=== PATIENT | female | born 1995 | race American Indian/Alaskan Native ===

== ENCOUNTER 2017-03-10 19:33 | Inpatient (IN) | payer MEDICAID ==
[2017-03-10] MEDS ORDERED: Sodium Chloride 0.9% 10 ML Syringe FLUSH PRN (21:20)
[2017-03-10] MEDS ORDERED: Lidocaine 1% 50 ML MDV INJECT PRN (21:20)
[2017-03-10] MEDS ORDERED: Nalbuphine 20 MG/1 ML Amp IVPUSH PRN (21:20)
[2017-03-10] MEDS ORDERED: Ondansetron 4 MG/2 ML SDV IVPUSH PRN ×2 (21:20→22:32)
[2017-03-10] MEDS ORDERED: Ampicillin 2 GM in Sodium Chloride 0.9% 100 ML IV ONE (21:20)
[2017-03-10] MEDS ORDERED: Oxytocin/Lactated Ringers 10 UNIT/1,000 ML BAG IV SCH (21:30)
[2017-03-10] MEDS ORDERED: Sodium Chloride 0.9% 200 ML ONE (21:44)
[2017-03-10] MEDS: Lactated Ringers 1,000 ML IV SCH ×3 (21:45→23:31)
[2017-03-10] MEDS ORDERED: fentaNYL 100 MCG/2 ML SDV EPIDUR PRN (22:32)
[2017-03-10] MEDS ORDERED: ePHEDrine 50 MG/ML SDV IVPUSH PRN (22:32)
--- NOTE | 2017-03-10 22:34 | PCM.PREANE ---
Preanesthetic Assessment - Anesthesia/Transfusion/Family Hx Anesthesia History: Prior Anesthesia Without Reaction Family History of Anesthesia Reaction: No Transfusion History: No Prior Transfusion(s) Intubation History: Unknown - Review of Systems General: No Symptoms Pulmonary: No Symptoms Cardiovascular: No Symptoms Gastrointestinal: No symptoms Neurological: No Symptoms Other: Reports: Thyroid Problems (hypothyroid), Anxiety - Physical Assessment NPO Status Date: 03/10/17 NPO Status Time: 17:00 Pulse: 76 O2 Sat by Pulse Oximetry: 98 Respiratory Rate: 18 Blood Pressure: 116/64 Temperature: 36.4 C Vital Signs: Last Vital Signs Temp 36.4 C 03/10/17 21:14 Pulse 76 03/10/17 21:14 Resp 18 03/10/17 21:14 BP 116/64 03/10/17 21:14 Pulse Ox 98 03/10/17 21:14 Height: 1.65 m Weight: 148.189 kg ASA Class: 2 Mental Status: Alert & Oriented x3 Airway Class: Mallampati = 1 Dentition: Reports: Normal Dentition, Caries Thyro-Mental Finger Breadths: 3 Mouth Opening Finger Breadths: 3 ROM/Head Extension: Full Lungs: Clear to auscultation, Normal respiratory effort Cardiovascular: Regular Rate, Regular Rhythm - Lab Values: Laboratory Last Values WBC 11.15 K/mm3 (3.98-10.04) H 03/10/17 21:30 RBC 4.06 M/mm3 (3.98-5.22) 03/10/17 21:30 Hgb 12.5 gm/L (11.2-15.7) 03/10/17 21:30 Hct 37.3 % (34.1-44.9) 03/10/17 21:30 MCV 91.9 fl (79.4-94.8) 03/10/17 21:30 MCH 30.8 pg (25.6-32.2) 03/10/17 21:30 MCHC 33.5 g/dl (32.2-35.5) 03/10/17 21:30 RDW Std Deviation 41.6 fL (36.4-46.3) 03/10/17 21:30 Plt Count 291 K/mm3 (182-369) 03/10/17 21:30 MPV 10.6 fl (9.4-12.3) 03/10/17 21:30 Above labs reviewed and noted. 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: Endocrine/Metabolic History: Reports: Hyperthyroidism, Obesity/BMI 30+ - Past Surgical History HEENT Surgical History: Reports: Oral Surgery, Tonsillectomy Endocrine Surgical History: Reports: None - SUBSTANCE USE Smoking Status *Q: Never Smoker Second Hand Smoke Exposure: No Recreational Drug Use History: No - HOME MEDS Home Medications: Home Meds ALPRAZolam [Xanax] 0.5 mg PO DAILY PRN 03/10/17 [History] Levothyroxine 25 mcg PO DAILY 03/10/17 [History] Vit W-Ca,Fe,FA(<1 mg) [ Vitamins] 1 tab PO DAILY 03/10/17 [ History] - CURRENT (IN HOUSE) MEDS Current Meds: Current Medications Ampicillin Sodium 1 gm/ Sodium (Chloride) 100 mls @ 200 mls/hr IV Q4H CHELA Lactated Ringer's (Ringers, Lactated) 1,000 mls @ 100 mls/hr IV ASDIRECTED [facility] Last Admin: 03/10/17 21:45 Dose: 999 mls/hr Oxytocin/Lactated Ringer's (Pitocin In Lr 10 Units/1,000 Ml) 10 unit in 1,000 mls @ 500 mls/hr IV TITRATE CHELA PRN Reason: Protocol Lidocaine HCl (Xylocaine 1%) 15 ml INJECT ONETIME PRN PRN Reason: Perineal Comfort Measure Nalbuphine HCl (Nubain) 10 mg IVPUSH Q2H PRN PRN Reason: Pain (moderate 4-6) Ondansetron HCl (Zofran) 4 mg IVPUSH Q4H PRN PRN Reason: Nausea/Vomiting Sodium Chloride (Saline Flush) 10 ml FLUSH ASDIRECTED PRN PRN Reason: Keep Vein Open Discontinued Medications Ampicillin Sodium 2 gm/ Sodium (Chloride) 100 mls @ 200 mls/hr IV ONETIME ONE Stop: 03/10/17 21:49 Last Admin: 03/10/17 21:45 Dose: 200 mls/hr Sodium Chloride (Normal Saline) Confirm Administered Dose 200 mls @ as directed .ROUTE .STK-MED ONE Stop: 03/10/17 21:45 Last Admin: 03/10/17 21:52 Dose: Not Given
--- NOTE | 2017-03-10 22:37 | PCM.LDHP ---
L&D History of Present Illness - General Date of Service: 03/10/17 Admit Problem/Dx: Patient Status Order with Admit Dx/Problem 03/10/17 21:20 Patient Status [ADT] Routine Admission Diagnosis/Problem Admission Diagnosis/Problem 03/10/17 22:23 39-4/7 week intrauterine , active labor progression of cervical dilation Source of Information: Patient History Limitations: Reports: No Limitations - History of Present Illness Introduction:: Tess is a 22-year-old 2 para 1001 thickening in female who is admitted this evening for active labor. She has an RADHA of 03/13/2017. Her RADHA is based upon ultrasound done on 09/15/2016 at 14-2/7 weeks.. Followup ultrasounds on 10/16/2016 end 11/24/2016 which supported the earliest ultrasound. She began contractions earlier today and has now progressed to approximately 6 cm. She is a bulging bag of andrade. She's received 1 dose of ampicillin prophylaxis for positive group B strep status. [facility] is [facility] in [facility]. She is apparently in 4 some drug addiction. 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 Ultrasound was done on 09/15/2016. She did followup visits on a reasonably regular basis by her history. Weight gain has been approximately 40 -50 pounds. Obstetric/ labs include: Blood is O+ with negative and risking. First renal hemoglobin was 12 0.8 and platelets were 317,000. She is rubella nonimmune. Hepatitis B and hepatitis C were nonreactive. HIV nonreactive. Chlamydia was positive and was treated. By patient history test to cure was done and was negative. GC was negative. Urine cultures normal. TSH is 0.41 microunits per minute layer. TSH was done on 05/17/2015. Free T4 on 09/27/2006 and was 0.7. Allergies none Medications: 1. Levothyroxine 25 mg per day past medical history 1. Vaginal delivery x1 2. History of Chlamydia-treated 3. Hidradenitis suppurativa 4. Hypothyroidism 5. Anxiety. Past surgical history: Surgery for hidradenitis Family history: Mother is alive but has diabetes mellitus. Father is alive and reasonably well. All grandparents are . Maternal grandfather secondary to cirrhosis of the liver. Maternal grandmother secondary to diabetic complications. Patient is not know her father or his family history. She is not feel or any bleeding, blood clotting, anesthesia or - related problems in the family. Social history: Patient is . Presently she is incarcerated as stated above. She denies any significant loss of alcohol, drugs or tobacco but did use marijuana early in the . She is incarcerated for a drug conviction by her history. 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 Review of systems: Patient is in moderate distress secondary contractions Skin-history of hidradenitis-stable at this time Cardiovascular-no chest pain or exercise intolerance of the nose associated with lack of condition Respiratory-no shortness of breath or infectious symptoms Breasts-changes associated with only GI. Negative . Changes associated with Musculoskeletal-some swelling noted. Neurologic-normal Physical exam: In general patient is a well-developed, well-nourished massively obese white female in no acute distress other than when she is nadira. She is alert and oriented x3 and appears to be reasonable historian. Skin is warm and dry with with out any active lesions. Has scarring from her hidradenitis. HEENT, neck and back within normal limits no thyromegaly noted at this time Lungs are clear with good breath sounds in all garner. Cardiovascular exam shows regular and rhythm without murmurs. Breast exam is deferred. Abdomen circumferences fundal height consistent with term . Suspected estimated weight to be 8-9 pounds. Genital exam shows cervix to be 6 cm/90% effaced/posterior bag water/-3/ cephalic presentation/very soft/midposition Extremities and neurological exam show mild edema. 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: Endocrine/Metabolic History: Reports: Hyperthyroidism, Obesity/BMI 30+ - Past Surgical History HEENT Surgical History: Reports: Oral Surgery, Tonsillectomy Endocrine Surgical History: Reports: None Social & Family History - Family History Family Medical History: Noncontributory - Tobacco Use Smoking Status *Q: Never Smoker Second Hand Smoke Exposure: No - Caffeine Use Caffeine Use: Reports: None - Recreational Drug Use Recreational Drug Use: No H&P Review of Systems - Review of Systems: Review Of Systems: See Below L&D Exam - Exam Exam: See Below - Vital Signs Vital Signs: Last Vital Signs Temp 36.4 C 03/10/17 21:14 Pulse 76 03/10/17 21:14 Resp 18 03/10/17 21:14 BP 116/64 03/10/17 21:14 Pulse Ox 98 03/10/17 21:14 Weight: 148.189 kg - Patient Data Lab Results last 24 hrs: Laboratory Results - last 24 hr 03/10/17 Range/Units 21:30 WBC 11.15 H (3.98-10.04) K/mm3 RBC 4.06 (3.98-5.22) M/mm3 Hgb 12.5 (11.2-15.7) gm/L Hct 37.3 (34.1-44.9) % MCV 91.9 (79.4-94.8) fl MCH 30.8 (25.6-32.2) pg MCHC 33.5 (32.2-35.5) g/dl RDW Std Deviation 41.6 (36.4-46.3) fL Plt Count 291 (182-369) K/mm3 MPV 10.6 (9.4-12.3) fl Result Diagrams: 03/10/17 21:30 Problem List Initiated/Reviewed/Updated: Yes Orders Last 24hrs: Active Orders 24 hr Category Date Time Status Patient Status [ADT] Routine ADT 03/10/17 21:20 Active Activity as Tolerated [RC] PFP Care 03/10/17 21:20 Active Communication Order [RC] ASDIRECTED Care 03/10/17 21:20 Active Heart Tones [RC] ASDIRECTED Care 03/10/17 21:22 Active Notify Provider [RC] PFP Care 03/10/17 21:20 Active Notify Provider [RC] PRN Care 03/10/17 21:20 Active Peripheral IV Care [RC] . DIRECTED Care 03/10/17 21:22 Active Vital Signs [RC] PER UNIT ROUTINE Care 03/10/17 21:20 Active Clear Liquid Diet [DIET] Diet 03/10/17 Dinner Active Ampicillin 1 gm Med 03/11/17 01:30 Active Sodium Chloride 0.9% [Normal Saline] 100 ml IV Q4H Lactated Ringers [Ringers, Lactated] 1,000 ml Med 03/10/17 21:30 Active IV ASDIRECTED Lidocaine 1% [Xylocaine 1%] Med 03/10/17 21:20 Active 15 ml INJECT ONETIME PRN Nalbuphine [Nubain] Med 03/10/17 21:20 Active 10 mg IVPUSH Q2H PRN Ondansetron [Zofran] Med 03/10/17 21:20 Active 4 mg IVPUSH Q4H PRN Oxytocin/Lactated Ringers [Pitocin in LR 10 Units/1,000 Med 03/10/17 21:30 Active ML] 10 unit in 1,000 ml IV TITRATE Sodium Chloride 0.9% [Saline Flush] Med 03/10/17 21:20 Active 10 ml FLUSH ASDIRECTED PRN Electronic Heart Tones Ext w TOCO [WOMSER] Oth 03/10/17 21:20 Ordered Routine Electronic Heart Tones Internal [WOMSER] Per Unit Oth 03/10/17 21:20 Ordered Routine Peripheral IV Insertion Adult [OM.PC] Routine Oth 03/10/17 21:20 Ordered Resuscitation Status Routine Resus Stat 03/10/17 21:20 Ordered Medication Orders Ampicillin Sodium 1 gm/ Sodium (Chloride) 100 mls @ 200 mls/hr IV Q4H CHELA Lactated Ringer's (Ringers, Lactated) 1,000 mls @ 100 mls/hr IV ASDIRECTED CHELA Last Admin: 03/10/17 21:45 Dose: 999 mls/hr Oxytocin/Lactated Ringer's (Pitocin In Lr 10 Units/1,000 Ml) 10 unit in 1,000 mls @ 500 mls/hr IV TITRATE CHELA PRN Reason: Protocol Lidocaine HCl (Xylocaine 1%) 15 ml INJECT ONETIME PRN PRN Reason: Perineal Comfort Measure Nalbuphine HCl (Nubain) 10 mg IVPUSH Q2H PRN PRN Reason: Pain (moderate 4-6) Ondansetron HCl (Zofran) 4 mg IVPUSH Q4H PRN PRN Reason: Nausea/Vomiting Sodium Chloride (Saline Flush) 10 ml FLUSH ASDIRECTED PRN PRN Reason: Keep Vein Open Assessment/Plan Comment:: : 1. 39-4/7 week intrauterine , active labor, progressed to cervical dilation 2. Group B strep status positive-patient's receive first dose of ampicillin. 3. Patient desire an epidural in labor and delivery 4. Risk factors for include the following: Massive obesity, incarceration [facility], history of drug use in early using marijuana only by her history. 5. Rubella nonimmune 6. Nursing-undecided Plan: 1. Anticipate normal spontaneous vaginal delivery 2. Epidural when necessary 3. MMR after delivery and prior to discharge 4. CBC with platelet count. 5. 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
[2017-03-10] MEDS ORDERED: Bupivacaine/fentaNYL/NS 100 ML Bag EPIDUR SCH (22:45)
[2017-03-11] MEDS ORDERED: Ampicillin 1 GM in Sodium Chloride 0.9% 100 ML IV SCH (01:30)
[2017-03-11] MEDS ORDERED: Measles, Mumps & Rubella Vaccine 0.5 ML SDV SUBCUT ONE (01:58)
--- NOTE | 2017-03-11 02:04 | PCM.SN ---
- Free Text/Narrative Note: Tess is a 22-year-old 2 now para 2002 female was admitted on the evening of 03/10/2017 with reports of active contractions. She was initially found to be approximately 2 cm but fairly quickly went to 4 cm and was admitted in active labor. She is group B strep positive and received 2 doses of ampicillin per protocol. She was found to progress relatively quickly to complete cervical dilation by approximately 0130 hours on 03/11/2017. With one push she then delivered a 3680 g (8 lbs. 2 oz.) male with Apgars of 7 and 9 and length of 20.0 inches in a right occiput anterior position. The cord was clamped and baby was layed on the patient's abdomen. Cord blood was obtained. The placenta delivered in a Schultze presentation, spontaneously, intact and complete. There was approximately 300 cc blood loss. The placenta delivered at 0143 hours. Patient plans to bottlefeed. Condition-good
[2017-03-11] MEDS ORDERED: Witch Hazel Medicated Pads 100/Jar TOP PRN (02:25)
[2017-03-11] MEDS ORDERED: Benzocaine/Menthol 20%-0.5% Spray 56 GM Canister TOP PRN (02:25)
[2017-03-11] MEDS ORDERED: Docusate Sodium 100 MG Cap PO PRN (02:25)
[2017-03-11] MEDS ORDERED: Acetaminophen 325 MG Tab PO PRN (02:25)
[2017-03-11] MEDS: Ibuprofen 800 MG Tab PO PRN ×2 (03:25→14:41)
--- NOTE | 2017-03-11 06:13 | PCM48HPAN ---
Post Anesthesia Note - EVALUATION WITHIN 48HRS OF ANESTHETIC Vital Signs in Normal Range: Yes Patient Participated in Evaluation: Yes Respiratory Function Stable: Yes Airway Patent: Yes Cardiovascular Function Stable: Yes Hydration Status Stable: Yes Pain Control Satisfactory: Yes Nausea and Vomiting Control Satisfactory: Yes Mental Status Recovered: Yes
[2017-03-11] MEDS: Levothyroxine 25 MCG Tab PO SCH (09:05)
[2017-03-11] MEDS: Prenatal Multivitamin with Calcium/Folic Acid/Iron Tab PO SCH (09:05)
[2017-03-12 05:55] VITALS: BP 114/45
--- NOTE | 2017-03-12 06:59 | PCM.DCSUM1 ---
Discharge Summary - Hospital Course Free Text/Narrative:: Tess is a 22-year-old 2 now para 2002 female was admitted at 39-4/7 weeks gestational age on the evening of 03/10/2017 with reports of active contractions. She was initially found to be approximately 2 cm but fairly quickly went to 4 cm and was admitted in active labor. She is group B strep positive and received 2 doses of ampicillin per protocol. She was found to progress relatively quickly to complete cervical dilation by approximately 0130 hours on 03/11/2017. With one push she then delivered a 3680 g (8 lbs. 2 oz.) male infant with Apgars of 7 and 9 and length of 20.0 inches in a right occiput anterior position. The cord was clamped and baby was layed on the patient's abdomen. Cord blood was obtained. The placenta delivered in a Schultze presentation, spontaneously, intact and complete. There was approximately 300 cc blood loss. The placenta delivered at 0143 hours. Patient plans to bottlefeed. Patient is incarcerated at the [facility] in [facility]. She'll be returning there upon discharge. The baby will be going to live with the father. patient is done well. She is bottlefeeding. Vital signs and stable. - Discharge Data Discharge Date: 03/12/17 Discharge Disposition: DC/Tfer to Other 70 Condition: Good - Patient Instructions Diet: Regular Diet as Tolerated Activity: As Tolerated (No intercourse or tampons until vaginal bleeding resolves) Driving: Do Not Drive Showering/Bathing: May Shower (May take a bath) Notify Provider of: Fever, Increased Pain, Swelling and Redness, Nausea and/or Vomiting - Discharge Plan Home Medications: Home Meds ALPRAZolam [Xanax] 0.5 mg PO DAILY PRN 03/10/17 [History] Levothyroxine 25 mcg PO DAILY 03/10/17 [History] Vit W-Ca,Fe,FA(<1 mg) [ Vitamins] 1 tab PO DAILY 03/10/17 [ History] Ibuprofen [IJD: Ibuprofen] 800 mg PO Q6H PRN #30 tablet 03/12/17 [Rx] Referrals: Yuki Tesfaye MD [Physician] - (Return to clinic-4 weeks-Dr. Tesfaye) - Discharge Summary/Plan Comment DC Time >30 min.: No Discharge Summary/Plan Comment: Discharge instructions: 1. Discharge home 2. Regular, high fiber diet 3. Precautions given concern increased pain, bleeding, temperature, signs/ symptoms and DVT/PE. 4. Medications per medication as printed, discussed with and given to the patient. 5. Return to clinic-Dr. Tesfaye-4 weeks. Condition: Good Diagnosis: 39 week intrauterine -delivered - Patient Data Vitals - Most Recent: Last Vital Signs Temp 36.8 C 03/12/17 05:24 Pulse 70 03/12/17 05:24 Resp 18 03/12/17 05:24 BP 114/45 L 03/12/17 05:24 Pulse Ox 99 03/12/17 05:24 Weight - Most Recent: 148.189 kg I&O - Last 24 hours: Intake & Output 03/11/17 03/11/17 03/12/17 14:59 22:59 06:59 Intake Total 360 Balance 360 Lab Results - Last 24 hrs: Laboratory Results - last 24 hr 03/12/17 Range/Units 05:47 WBC 8.49 (3.98-10.04) K/mm3 RBC 3.65 L (3.98-5.22) M/mm3 Hgb 11.4 (11.2-15.7) gm/L Hct 34.1 (34.1-44.9) % MCV 93.4 (79.4-94.8) fl MCH 31.2 (25.6-32.2) pg MCHC 33.4 (32.2-35.5) g/dl RDW Std Deviation 42.3 (36.4-46.3) fL Plt Count 254 (182-369) K/mm3 MPV 10.5 (9.4-12.3) fl Med Orders - Current: Current Medications Acetaminophen (Tylenol) 650 mg PO Q4H PRN PRN Reason: mild pain or fever Benzocaine/Menthol (Dermoplast Pain Relief [place]) 0 gm TOP ASDIRECTED PRN PRN Reason: Perineal Comfort Measure Last Admin: 03/11/17 03:25 Dose: 1 canister Docusate Sodium (Colace) 100 mg PO BID PRN PRN Reason: Constipation Last Admin: 03/11/17 03:25 Dose: 100 mg Ibuprofen (Motrin) 800 mg PO Q6H PRN PRN Reason: Mild pain or fever Last Admin: 03/11/17 14:41 Dose: 800 mg Levothyroxine Sodium (Levothyroxine) 25 mcg PO ACBRK [facility] Last Admin: 03/11/17 09:05 Dose: 25 mcg Prenat Multivit/Quay/Iron/Folic Ac ( Plus Iron) 1 each PO DAILY [facility] Last Admin: 03/11/17 09:05 Dose: 1 each [place] Kinza (Tucks) 1 pad TOP ASDIRECTED PRN PRN Reason: Hemorrhoid pain Last Admin: 03/11/17 03:24 Dose: 1 container Discontinued Medications Ephedrine Sulfate (Ephedrine Sulfate) 5 mg IVPUSH ASDIRECTED PRN PRN Reason: Hypotension Fentanyl (Sublimaze) 100 mcg EPIDUR Q3H PRN PRN Reason: Pain Last Admin: 03/10/17 22:51 Dose: 100 mcg Fentanyl/Bupivacaine HCl (Fentanyl/Bupivacaine/Ns 2 Mcg-0.125% 100 Ml) 100 ml EPIDUR ASDIRECTED [facility] Last Admin: 03/10/17 22:51 Dose: 100 ml Ampicillin Sodium 2 gm/ Sodium (Chloride) 100 mls @ 200 mls/hr IV ONETIME ONE Stop: 03/10/17 21:49 Last Admin: 03/10/17 21:45 Dose: 200 mls/hr Ampicillin Sodium 1 gm/ Sodium (Chloride) 100 mls @ 200 mls/hr IV Q4H [facility] Last Admin: 03/11/17 01:11 Dose: 200 mls/hr Lactated Ringer's (Ringers, Lactated) 1,000 mls @ 100 mls/hr IV ASDIRECTED [facility] Last Admin: 03/10/17 23:31 Dose: 125 mls/hr Oxytocin/Lactated Ringer's (Pitocin In Lr 10 Units/1,000 Ml) 10 unit in 1,000 mls @ 500 mls/hr IV TITRATE [facility] PRN Reason: Protocol Last Admin: 03/11/17 01:40 Dose: 500 mls/hr Sodium Chloride (Normal Saline) Confirm Administered Dose 200 mls @ as directed .ROUTE .STK-MED ONE Stop: 03/10/17 21:45 Last Admin: 03/10/17 21:52 Dose: Not Given Lidocaine HCl (Xylocaine 1%) 15 ml INJECT ONETIME PRN PRN Reason: Perineal Comfort Measure Measles/Mumps/Rubella Vaccine Live (M-M-R Ii Vaccine) 0.5 ml SUBCUT .ONCE ONE Stop: 03/11/17 01:59 Nalbuphine HCl (Nubain) 10 mg IVPUSH Q2H PRN PRN Reason: Pain (moderate 4-6) Ondansetron HCl (Zofran) 4 mg IVPUSH Q4H PRN PRN Reason: Nausea/Vomiting Ondansetron HCl (Zofran) 4 mg IVPUSH ONETIME PRN PRN Reason: Nausea/Vomiting Sodium Chloride (Saline Flush) 10 ml FLUSH ASDIRECTED PRN PRN Reason: Keep Vein Open *Q Meaningful Use (DIS) - VTE *Q VTE Criteria *Q: - Stroke *Q Stroke Criteria *Q: - AMI *Q AMI Criteria *Q:
[2017-03-12] MEDS: Levothyroxine 25 MCG Tab PO SCH (08:08)
[2017-03-12] MEDS: Prenatal Multivitamin with Calcium/Folic Acid/Iron Tab PO SCH (09:00)
== END 2017-03-12 09:46 | disposition other institution (70) | DRG 775 ==
LOC: JD.OB 19:33 → JD.OBCHECK 19:33 → JD.OB 21:20 → OBSVTOIN 03-11 01:40 → JD.OB 03-11 01:40
PROVIDERS: ADMIT Obstetrics & Gynecology; ATTEND Obstetrics & Gynecology
PROC: 10E0XZZ Delivery of Products of Conception, External Approach (ICD-10-PCS; principal; 2017-03-11)
PROC: 3E0R3CZ (ICD-10-PCS; 2017-03-11)
DX: O99.824 Streptococcus B carrier state complicating childbirth (principal); O99.344 Other mental disorders complicating childbirth; O99.284 Endocrine, nutritional and metabolic diseases complicating childbirth; E03.9 Hypothyroidism, unspecified; L73.2 Hidradenitis suppurativa; F41.9 Anxiety disorder, unspecified; Z86.19 Personal history of other infectious and parasitic diseases; Z3A.39 39 weeks gestation of pregnancy; Z37.0 Single live birth
CPT/HCPCS: 01967; 36415; 85027; A9270-GY; J0290; J2590; J3010; J7030; J7120

== ENCOUNTER 2020-01-28 06:49 | Inpatient (IN) | payer MEDICAID, OTHER ==
[~2020-01-28 06:49] MED LIST: Bupivacaine 0.25% 10 ML SDV ONE
[2020-01-28] MEDS ORDERED: Sodium Chloride 0.9% 10 ML Syringe FLUSH PRN (07:17)
[2020-01-28] MEDS ORDERED: Ondansetron 4 MG/2 ML SDV IVPUSH PRN (07:17)
[2020-01-28] MEDS ORDERED: Nalbuphine 10 MG/ML Syringe IVPUSH PRN (07:17)
--- NOTE | 2020-01-28 07:20 | PCM.LDHP ---
L&D History of Present Illness - General Date of Service: 01/28/20 Admit Problem/Dx: Patient Status Order with Admit Dx/Problem 01/28/20 07:17 Patient Status [ADT] Routine Admission Diagnosis/Problem Admission Diagnosis/Problem High risk Source of Information: Patient History Limitations: Reports: No Limitations - History of Present Illness Introduction:: Patient is a 24-year-old 013 at 39-3/7 weeks gestation who presents for induction of labor. Patient's has been complicated by early maternal drug use. She has been incarcerated since about 16 weeks. Also has complication of maternal obesity with a BMI of 50 currently. Growth scans been appropriate. Doing well today. 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 , : 5 Para: 3 LMP (Approximate): Psychiatric History: Reports: Addiction, Anxiety, Depression Endocrine/Metabolic History: Reports: Obesity/BMI 30+ - Past Surgical History HEENT Surgical History: Reports: Tonsillectomy Female Surgical History: Reports: Other (See Below) (Ectopic procedure) Social & Family History - Family History Family Medical History: Noncontributory - Tobacco Use Smoking Status *Q: Never Smoker - Caffeine Use Caffeine Use: Reports: None - Alcohol Use Alcohol Use History: No - Recreational Drug Use Recreational Drug Use: Yes Drug Use in Last 12 Months: Yes Recreational Drug Type: Reports: Cocaine, Heroin H&P Review of Systems - Review of Systems: Review Of Systems: See Below General: Reports: No Symptoms Pulmonary: Reports: No Symptoms Cardiovascular: Reports: No Symptoms Gastrointestinal: Reports: No Symptoms Genitourinary: Reports: No Symptoms Musculoskeletal: Reports: No Symptoms Psychiatric: Reports: No Symptoms Neurological: Reports: No Symptoms L&D Exam - Exam Exam: See Below - OB Specific Contraction Intensity: Irritability Movement: Active Heart Tones: Present Heart Tones per Min: 140 Heart Rate (FHR) Variability: Moderate (6-25 bmp) Presentation: Vertex - Blanco Score Blanco Score Cervix Position: Midposition Blanco Score Consistency: Soft Blanco Score Effacement: 51-70% Blanco Score Dilation: 1-2 cm Blanco Score 's Station: -2 Blanco Score Total: 7 - Exam General: Alert, Oriented, Cooperative Lungs: Clear to Auscultation, Normal Respiratory Effort Cardiovascular: Regular Rate, Regular Rhythm GI/Abdominal Exam: Soft, Non-Tender Genitourinary: Normal external exam Extremities: Normal Inspection Skin: Warm, Dry, Intact - Patient Data Result Diagrams: 01/28/20 07:45 - Problem List (1) 39 weeks gestation of SNOMED Code(s): 14842746 ICD Code: Z3A.39 - 39 WEEKS GESTATION OF Status: Acute Current Visit: Yes (2) Imprisonment and other incarceration SNOMED Code(s): 57177236 ICD Code: Z65.1 - IMPRISONMENT AND OTHER INCARCERATION Status: Acute Current Visit: Yes (3) History of drug abuse SNOMED Code(s): 463345660 ICD Code: F19.11 - OTHER PSYCHOACTIVE SUBSTANCE ABUSE, IN REMISSION Status : Acute Current Visit: Yes Problem List Initiated/Reviewed/Updated: Yes Orders Last 24hrs: Active Orders 24 hr Category Date Time Status Patient Status [ADT] Routine ADT 01/28/20 07:17 Ordered Activity as Tolerated [RC] PFP Care 01/28/20 07:17 Ordered Communication Order [RC] ASDIRECTED Care 01/28/20 07:17 Ordered Communication Order [RC] ASDIRECTED Care 01/28/20 07:17 Ordered Communication Order [RC] ASDIRECTED Care 01/28/20 07:17 Ordered Heart Tones [RC] ASDIRECTED Care 01/28/20 07:18 Ordered Monitoring [RC] INTERMITTENT Care 01/28/20 07:17 Ordered Non Stress Test [RC] PER UNIT ROUTINE Care 01/28/20 07:17 Ordered Notify Provider [RC] ASDIRECTED Care 01/28/20 07:17 Ordered Notify Provider [RC] PRN Care 01/28/20 07:17 Ordered Peripheral IV Care [RC] . DIRECTED Care 01/28/20 07:18 Ordered Up ad Amie [RC] ASDIRECTED Care 01/28/20 07:18 Ordered Vaginal Exam [RC] ASDIRECTED Care 01/28/20 07:17 Ordered Vital Signs [RC] ASDIRECTED Care 01/28/20 07:17 Ordered Regular Diet [DIET] Diet 01/28/20 Breakfast Ordered CBC W/O DIFF,HEMOGRAM [HEME] Routine Lab 01/28/20 07:17 Ordered RAPID PLASMA REAGIN,RPR [CHEM] Routine Lab 01/28/20 07:17 Ordered TYPE AND SCREEN [BBK] Routine Lab 01/28/20 07:17 Ordered Lactated Ringers [Ringers, Lactated] 1,000 ml Med 01/28/20 07:30 Ordered IV ASDIRECTED Nalbuphine [Nubain] Med 01/28/20 07:17 Ordered 10 mg IVPUSH Q2H PRN Ondansetron [Zofran] Med 01/28/20 07:17 Ordered 4 mg IVPUSH Q4H PRN Oxytocin/Lactated Ringers [Pitocin in LR 10 Units/1,000 Med 01/28/20 07:30 Ordered ML] 10 unit in 1,000 ml IV .CONTINUOUS Oxytocin/Lactated Ringers [Pitocin in LR 10 Units/1,000 Med 01/28/20 07:30 Ordered ML] 10 unit in 1,000 ml IV TITRATE Sodium Chloride 0.9% [Saline Flush] Med 01/28/20 07:17 Ordered 10 ml FLUSH ASDIRECTED PRN Electronic Heart Tones Ext w TOCO [WOMSER] Oth 01/28/20 07:17 Ordered Routine Electronic Heart Tones Internal [WOMSER] Per Unit Oth 01/28/20 07:17 Ordered Routine Peripheral IV Insertion Adult [OM.PC] Routine Oth 01/28/20 07:17 Ordered Resuscitation Status Routine Resus Stat 01/28/20 07:17 Ordered Assessment/Plan Comment:: * Labs done * GBS negative * AROM and pitocin * Pain management per patient preference * Anticipate * UDS and cord segment collection
[2020-01-28] MEDS ORDERED: Oxytocin/Lactated Ringers 10 UNIT/1,000 ML BAG IV SCH ×2 (07:30)
[2020-01-28] MEDS ORDERED: ePHEDrine 50 MG/ML SDV IVPUSH PRN (07:31)
[2020-01-28] MEDS ORDERED: fentaNYL 100 MCG/2 ML SDV EPIDUR PRN (07:31)
[2020-01-28] MEDS ORDERED: diphenhydrAMINE 50 MG/ML SDV IVPUSH PRN (07:31)
[2020-01-28] MEDS ORDERED: Bupivacaine/fentaNYL/NS 100 ML Bag EPIDUR PRN (07:31)
[2020-01-28] MEDS: Lactated Ringers 1,000 ML IV SCH ×2 (08:00→09:58)
--- NOTE | 2020-01-28 10:33 | PCM.PREANE ---
Preanesthetic Assessment - Procedure Proposed Procedure: epidural - Anesthesia/Transfusion/Family Hx Anesthesia History: Prior Anesthesia Without Reaction Family History of Anesthesia Reaction: No Transfusion History: No Prior Transfusion(s) Intubation History: Unknown - Review of Systems General: Fatigue Pulmonary: No Symptoms Cardiovascular: No Symptoms Gastrointestinal: Abdominal Pain (labor) Neurological: No Symptoms Other: Reports: None - Physical Assessment Vital Signs: Last Vital Signs Temp 36.5 C 01/28/20 07:17 Pulse Resp 14 01/28/20 07:17 BP 107/64 01/28/20 07:17 Pulse Ox 98 01/28/20 07:17 Height: 1.6 m Weight: 138.527 kg ASA Class: 2 Mental Status: Alert & Oriented x3 Airway Class: Mallampati = 2 Dentition: Reports: Missing Tooth/Teeth, Caries Thyro-Mental Finger Breadths: 3 Mouth Opening Finger Breadths: 3 ROM/Head Extension: Full Lungs: Clear to Auscultation, Normal Respiratory Effort Cardiovascular: Regular Rate, Regular Rhythm - Lab Values: Laboratory Last Values WBC 9.75 K/mm3 (3.98-10.04) 01/28/20 07:45 RBC 3.79 M/mm3 (3.98-5.22) L 01/28/20 07:45 Hgb 11.5 gm/dl (11.2-15.7) 01/28/20 07:45 Hct 35.2 % (34.1-44.9) 01/28/20 07:45 MCV 92.9 fl (79.4-94.8) 01/28/20 07:45 MCH 30.3 pg (25.6-32.2) 01/28/20 07:45 MCHC 32.7 g/dl (32.2-35.5) 01/28/20 07:45 RDW Std Deviation 40.8 fL (36.4-46.3) 01/28/20 07:45 Plt Count 291 K/mm3 (182-369) 01/28/20 07:45 MPV 10.7 fl (9.4-12.3) 01/28/20 07:45 Urine Opiates Screen Negative (IDTNVB=951) 01/28/20 09:40 Ur Buprenorphine Scrn Negative (CUTOFF=10) 01/28/20 09:40 Ur Oxycodone Screen Negative (GQI2UB=598) 01/28/20 09:40 Urine Methadone Screen Negative (OYWPXI=293) 01/28/20 09:40 Ur Propoxyphene Screen Negative (HGUSQT=761) 01/28/20 09:40 Ur Barbiturates Screen Negative (JGTFZZ=754) 01/28/20 09:40 Ur Tricyclics Screen Negative (IXVANS=631) 01/28/20 09:40 Ur Phencyclidine Scrn Negative (CUTOFF=25) 01/28/20 09:40 Ur Amphetamine Screen Negative (LBATBW=189) 01/28/20 09:40 U Methamphetamines Scrn Negative (SMZMTI=430) 01/28/20 09:40 U Benzodiazepines Scrn Negative (FEPHKH=802) 01/28/20 09:40 U Cocaine Metab Screen Negative (RBMSFZ=813) 01/28/20 09:40 U Marijuana (THC) Screen Negative (CUTOFF=50) 01/28/20 09:40 - Allergies Allergies/Adverse Reactions: Allergies Allergy/AdvReac Type Severity Reaction Status Date / Time No Known Allergies Allergy Verified 01/28/20 08:05 - Anesthesia Plan Pre-Op Medication Ordered: None - Acknowledgements Anesthesia Type Planned: Epidural Pt an Appropriate Candidate for the Planned Anesthesia: Yes Alternatives and Risks of Anesthesia Discussed w Pt/Guardian: Yes Pt/Guardian Understands and Agrees with Anesthesia Plan: Yes PreAnesthesia Questionnaire HEENT History: Reports: None Gastrointestinal History: Reports: GERD 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 , Endocrine/Metabolic History: Reports: Hyperthyroidism, Obesity/BMI 30+ - Past Surgical History Endocrine Surgical History: Reports: Adrenal Gland - SUBSTANCE USE Smoking Status *Q: Never Smoker Second Hand Smoke Exposure: No Recreational Drug Use History: Yes Recreational Drug Type: Reports: Marijuana/Hashish - CURRENT (IN HOUSE) MEDS Current Meds: Current Medications Diphenhydramine HCl (Benadryl) 25 mg IVPUSH Q6H PRN PRN Reason: Itching Ephedrine Sulfate (Ephedrine Sulfate) 5 mg IVPUSH ASDIRECTED PRN PRN Reason: HYPOTENTSION Fentanyl (Sublimaze) 100 mcg EPIDUR Q3H PRN PRN Reason: Pain Last Admin: 01/28/20 10:02 Dose: 100 mcg Fentanyl/Bupivacaine HCl (Fentanyl/Bupivacaine/Ns 2 Mcg-0.125% 100 Ml) 100 ml EPIDUR CONTINUOUS PRN PRN Reason: Pain Last Admin: 01/28/20 10:02 Dose: 100 ml Lactated Ringer's (Ringers, Lactated) 1,000 mls @ 40 mls/hr IV ASDIRECTED CHELA Last Admin: 01/28/20 09:58 Dose: 40 mls/hr Oxytocin/Lactated Ringer's (Pitocin In Lr 10 Units/1,000 Ml) 10 unit in 1,000 mls @ 12 mls/hr IV TITRATE CHELA; Protocol Last Titration: 01/28/20 08:45 Dose: 4 munits/min, 24 mls/hr Oxytocin/Lactated Ringer's (Pitocin In Lr 10 Units/1,000 Ml) 10 unit in 1,000 mls @ 500 mls/hr IV .CONTINUOUS CHELA Nalbuphine HCl (Nubain) 10 mg IVPUSH Q2H PRN PRN Reason: Pain Ondansetron HCl (Zofran) 4 mg IVPUSH Q4H PRN PRN Reason: Nausea/Vomiting Sodium Chloride (Saline Flush) 10 ml FLUSH ASDIRECTED PRN PRN Reason: Keep Vein Open
--- NOTE | 2020-01-28 12:41 | PCM.PNLD ---
Labor Progress Note - VS & Meds Vital Signs: Last Vital Signs Temp 36.5 C 01/28/20 07:17 Pulse Resp 14 01/28/20 07:17 BP 107/64 01/28/20 07:17 Pulse Ox 98 01/28/20 07:17 Active Medications: Current Medications Diphenhydramine HCl (Benadryl) 25 mg IVPUSH Q6H PRN PRN Reason: Itching Ephedrine Sulfate (Ephedrine Sulfate) 5 mg IVPUSH ASDIRECTED PRN PRN Reason: HYPOTENTSION Fentanyl (Sublimaze) 100 mcg EPIDUR Q3H PRN PRN Reason: Pain Last Admin: 01/28/20 10:02 Dose: 100 mcg Fentanyl/Bupivacaine HCl (Fentanyl/Bupivacaine/Ns 2 Mcg-0.125% 100 Ml) 100 ml EPIDUR CONTINUOUS PRN PRN Reason: Pain Last Admin: 01/28/20 10:02 Dose: 100 ml Lactated Ringer's (Ringers, Lactated) 1,000 mls @ 40 mls/hr IV ASDIRECTED CHELA Last Admin: 01/28/20 09:58 Dose: 40 mls/hr Oxytocin/Lactated Ringer's (Pitocin In Lr 10 Units/1,000 Ml) 10 unit in 1,000 mls @ 12 mls/hr IV TITRATE CHELA; Protocol Last Titration: 01/28/20 11:35 Dose: 6 munits/min, 36 mls/hr Oxytocin/Lactated Ringer's (Pitocin In Lr 10 Units/1,000 Ml) 10 unit in 1,000 mls @ 500 mls/hr IV .CONTINUOUS CHELA Nalbuphine HCl (Nubain) 10 mg IVPUSH Q2H PRN PRN Reason: Pain Ondansetron HCl (Zofran) 4 mg IVPUSH Q4H PRN PRN Reason: Nausea/Vomiting Sodium Chloride (Saline Flush) 10 ml FLUSH ASDIRECTED PRN PRN Reason: Keep Vein Open - Uterine Contractions Uterine Monitoring Mode: External [place] Contraction Intensity: Moderate Uterine Resting Tone: Soft - Monitoring Monitor Mode: External Ultrasound Heart Rate (FHR) Baseline: 145 Heart Rate (FHR) Variability: Moderate (6-25 bmp) Accelerations: Present, 10x10 (=/<32 wks) Decelerations: Variable Strip Review: Category II - Vaginal Exam Dilation (cm): 4-5 Effacement (Percent): 50 Station: -2 Cervical Position: Midposition - Labor Progress (Free Text) Labor Progress: Doing well. Pitocin at 6. Having some sharper variables, but overall tracing reassuring. Will continue to monitor closely
[2020-01-28] MEDS ORDERED: Docusate Sodium 100 MG Cap PO PRN (15:16)
[2020-01-28] MEDS ORDERED: Acetaminophen 325 MG Tab PO PRN (15:16)
[2020-01-28] MEDS ORDERED: Benzocaine/Menthol 20%-0.5% Spray 56 GM Canister TOP PRN (15:16)
[2020-01-28] MEDS ORDERED: Witch Hazel Medicated Pads 40/Jar TOP PRN (15:16)
--- NOTE | 2020-01-28 15:19 | PCM.DEL ---
L & D Note - General Info Date of Service: 01/28/20 - Delivery Note Labor: Induced by ARM, Induced by Oxytocin Delivery Outcome: Livebirth Infant Delivery Method: Spontaneous Vaginal Delivery-Single Infant Delivery Mode: Spontaneous Presentation: Right Occiput Anterior (MAR) Nuchal Cord: None Anesthesia Type: Epidural Amniotic Fluid Description: Clear Episiotomy Type: None Laceration: None Placenta: Intact, Spontaneous Cord: 3 Vessels Estimated Blood Loss: 100 Resuscitation Needed: Yes [place]: Bulb Syringe, Stimulated, Warmed, [place] Used, Warmer Used Delivery Comments (Free Text/Narrative):: Patient found to be complete and began pushing. With maternal pushing effort head delivered from an MRA presentation. No nuchal cord present. With gentle downward traction shoulders and body delivered. placed on maternal abdomen. Cord clamped and cut. Cord blood obtained. Placenta allowed time to separate and expelled intact. Inspection of the perineum showed no lacerations. - General Info Date of Service: 01/28/20 - Patient Data Vitals - Most Recent: Last Vital Signs Temp 36.5 C 01/28/20 07:17 Pulse Resp 14 01/28/20 07:17 BP 107/64 01/28/20 07:17 Pulse Ox 98 01/28/20 07:17 Weight - Most Recent: 138.527 kg I&O - Last 24 Hours: Intake & Output 01/28/20 01/28/20 01/28/20 06:59 14:59 22:59 Intake Total 0 Balance 0 - Problem List & Annotations (1) 39 weeks gestation of SNOMED Code(s): 76908872 Code(s): Z3A.39 - 39 WEEKS GESTATION OF Status: Acute Current Visit: Yes (2) Imprisonment and other incarceration SNOMED Code(s): 90306021 Code(s): Z65.1 - IMPRISONMENT AND OTHER INCARCERATION Status: Acute Current Visit: Yes (3) History of drug abuse SNOMED Code(s): 102041551 Code(s): F19.11 - OTHER PSYCHOACTIVE SUBSTANCE ABUSE, IN REMISSION Status: Acute Current Visit: Yes - Problem List Review Problem List Initiated/Reviewed/Updated: Yes - My Orders Last 24 Hours: My Active Orders 01/28/20 07:17 Monitoring [RC] INTERMITTENT Vaginal Exam [RC] ASDIRECTED Resuscitation Status Routine 01/28/20 07:18 Heart Tones [RC] ASDIRECTED 01/28/20 08:35 GROUP B STREP BY PCR [MOLEC] Stat 01/28/20 11:19 PATIENT RETYPE [BBK] Routine 01/28/20 15:16 Activity as Tolerated [RC] PER UNIT ROUTINE Vital Signs [RC] ASDIRECTED Acetaminophen [Tylenol] 650 mg PO Q4H PRN Benzocaine/Menthol [Dermoplast Pain Relief [place]] See Dose Instructions TOP ASDIRECTED PRN Docusate Sodium [Colace] 100 mg PO BID PRN Ibuprofen [Motrin] 600 mg PO Q6H PRN witch [place] [Tucks] 1 pad TOP ASDIRECTED PRN Assess Lochia [WOMSER] Per Unit Routine Assess Uterine Involution [WOMSER] Per Unit Routine Breast Pump [WOMSER] Per Unit Routine Heat Therapy [OM.PC] PRN Ice Therapy [OM.PC] Per Unit Routine Perineal Care [OM.PC] Per Unit Routine Peripheral IV Discontinue [OM.PC] Routine Sitz Bath [OM.PC] Per Unit Routine 01/28/20 Dinner Regular Diet [DIET] 01/29/20 15:16 Heat Therapy [OM.PC] PRN - Assessment Assessment:: PPD#0 - Plan Plan:: * Routine cares * bottle feeding * Discharge likely tomorrow
[2020-01-28] MEDS: Ibuprofen 600 MG Tab PO PRN (20:21)
[2020-01-29] MEDS: Ibuprofen 600 MG Tab PO PRN (03:42)
--- NOTE | 2020-01-29 06:38 | PCM.PNPP ---
- General Info Date of Service: 01/29/20 Functional Status: Reports: Pain Controlled, Tolerating Diet, Ambulating, Urinating, New Symptoms - Review of Systems General: Reports: No Symptoms Pulmonary: Reports: No Symptoms Cardiovascular: Reports: No Symptoms Gastrointestinal: Reports: No Symptoms Genitourinary: Reports: No Symptoms Musculoskeletal: Reports: Back Pain, Joint Pain (hips) Neurological: Reports: No Symptoms - Patient Data Vital Signs - Most Recent: Last Vital Signs Temp 36.9 C 01/29/20 03:24 Pulse 56 L 01/29/20 03:24 Resp 16 01/29/20 03:24 BP 131/84 01/29/20 03:24 Pulse Ox 98 01/29/20 03:24 Weight - Most Recent: 138.527 kg I&O - Last 24 Hours: Intake & Output 01/28/20 01/28/20 01/29/20 14:59 22:59 06:59 Intake Total 0 3120 Output Total 300 Balance 0 2820 Lab Results - Last 24 Hours: Laboratory Results - last 24 hr 01/28/20 01/28/20 01/28/20 Range/Units 07:45 07:45 07:45 WBC 9.75 (3.98-10.04) K/mm3 RBC 3.79 L (3.98-5.22) M/mm3 Hgb 11.5 (11.2-15.7) gm/dl Hct 35.2 (34.1-44.9) % MCV 92.9 (79.4-94.8) fl MCH 30.3 (25.6-32.2) pg MCHC 32.7 (32.2-35.5) g/dl RDW Std Deviation 40.8 (36.4-46.3) fL Plt Count 291 (182-369) K/mm3 MPV 10.7 (9.4-12.3) fl Urine Opiates Screen (PKKCCL=542) Ur Buprenorphine Scrn (CUTOFF=10) Ur Oxycodone Screen (BMJ4HC=044) Urine Methadone Screen (MOTUGS=627) Ur Propoxyphene Screen (BIFTOM=939) Ur Barbiturates Screen (ZLLGRK=871) Ur Tricyclics Screen (AFVSRH=529) Ur Phencyclidine Scrn (CUTOFF=25) Ur Amphetamine Screen (TWXZWC=430) U Methamphetamines Scrn (KEWFXV=824) U Benzodiazepines Scrn (EPAQJS=769) U Cocaine Metab Screen (KSPDVL=629) U Marijuana (THC) Screen (CUTOFF=50) RPR Non-reactive (NONREACTIVE) MRSA (PCR) Blood Type O POSITIVE Gel Antibody Screen Negative 01/28/20 01/28/20 Range/Units 09:40 10:40 WBC (3.98-10.04) K/mm3 RBC (3.98-5.22) M/mm3 Hgb (11.2-15.7) gm/dl Hct (34.1-44.9) % MCV (79.4-94.8) fl MCH (25.6-32.2) pg MCHC (32.2-35.5) g/dl RDW Std Deviation (36.4-46.3) fL Plt Count (182-369) K/mm3 MPV (9.4-12.3) fl Urine Opiates Screen Negative (MJWGOB=596) Ur Buprenorphine Scrn Negative (CUTOFF=10) Ur Oxycodone Screen Negative (QFN0BV=062) Urine Methadone Screen Negative (FPMPBX=524) Ur Propoxyphene Screen Negative (LXOHJR=359) Ur Barbiturates Screen Negative (DIGRLW=566) Ur Tricyclics Screen Negative (RSNOTC=916) Ur Phencyclidine Scrn Negative (CUTOFF=25) Ur Amphetamine Screen Negative (ARRBDH=197) U Methamphetamines Scrn Negative (RTYEHU=360) U Benzodiazepines Scrn Negative (AVIHRD=135) U Cocaine Metab Screen Negative (HGXTIA=376) U Marijuana (THC) Screen Negative (CUTOFF=50) RPR (NONREACTIVE) MRSA (PCR) Positive H Blood Type Gel Antibody Screen Med Orders - Current: Current Medications Acetaminophen (Tylenol) 650 mg PO Q4H PRN PRN Reason: mild pain or fever Benzocaine/Menthol (Dermoplast Pain Relief [place]) 0 gm TOP ASDIRECTED PRN PRN Reason: Perineal Comfort Measure Last Admin: 01/28/20 16:54 Dose: 1 can Docusate Sodium (Colace) 100 mg PO BID PRN PRN Reason: Constipation Ibuprofen (Motrin) 600 mg PO Q6H PRN PRN Reason: Mild pain or fever Last Admin: 01/29/20 03:42 Dose: 600 mg [place] (Tucks) 1 pad TOP ASDIRECTED PRN PRN Reason: Perineal Comfort Measure Last Admin: 01/28/20 16:54 Dose: 1 tub Discontinued Medications Diphenhydramine HCl (Benadryl) 25 mg IVPUSH Q6H PRN PRN Reason: Itching Ephedrine Sulfate (Ephedrine Sulfate) 5 mg IVPUSH ASDIRECTED PRN PRN Reason: HYPOTENTSION Fentanyl (Sublimaze) 100 mcg EPIDUR Q3H PRN PRN Reason: Pain Last Admin: 01/28/20 10:02 Dose: 100 mcg Fentanyl/Bupivacaine HCl (Fentanyl/Bupivacaine/Ns 2 Mcg-0.125% 100 Ml) 100 ml EPIDUR CONTINUOUS PRN PRN Reason: Pain Last Admin: 01/28/20 10:02 Dose: 100 ml Lactated Ringer's (Ringers, Lactated) 1,000 mls @ 40 mls/hr IV ASDIRECTED CHELA Last Admin: 01/28/20 09:58 Dose: 40 mls/hr Oxytocin/Lactated Ringer's (Pitocin In Lr 10 Units/1,000 Ml) 10 unit in 1,000 mls @ 12 mls/hr IV TITRATE CHELA; Protocol Last Titration: 01/28/20 14:56 Dose: 999 munits/min, 5,994 mls/hr Oxytocin/Lactated Ringer's (Pitocin In Lr 10 Units/1,000 Ml) 10 unit in 1,000 mls @ 500 mls/hr IV .CONTINUOUS CHELA Nalbuphine HCl (Nubain) 10 mg IVPUSH Q2H PRN PRN Reason: Pain Ondansetron HCl (Zofran) 4 mg IVPUSH Q4H PRN PRN Reason: Nausea/Vomiting Sodium Chloride (Saline Flush) 10 ml FLUSH ASDIRECTED PRN PRN Reason: Keep Vein Open - Infant Interaction Infant Disposition, : [place] in Room with Family Infant Interaction: Holding Infant Feeding: Bottle Fed Support Person: - Recovery Exam Fundal Tone: Firm Fundal Level: At Umbilicus Fundal Placement: Midline Lochia Amount: Small Lochia Color: [place]/Red Perineum Description: Intact, Minimal Bruising/Swelling Episiotomy/Laceration: None Bladder Status: Voiding Urinary Elimination: Voided - Exam General: Alert, Oriented, Cooperative GI/Abdominal Exam: Soft, Non-Tender Extremities: Normal Inspection Skin: Warm, Dry, Intact - Problem List & Annotations (1) 39 weeks gestation of SNOMED Code(s): 17709357 Code(s): Z3A.39 - 39 WEEKS GESTATION OF Status: Acute Current Visit: Yes (2) Imprisonment and other incarceration SNOMED Code(s): 17430524 Code(s): Z65.1 - IMPRISONMENT AND OTHER INCARCERATION Status: Acute Current Visit: Yes (3) History of drug abuse SNOMED Code(s): 579748520 Code(s): F19.11 - OTHER PSYCHOACTIVE SUBSTANCE ABUSE, IN REMISSION Status: Acute Current Visit: Yes (4) Vaginal delivery SNOMED Code(s): 623880223 Code(s): O80 - ENCOUNTER FOR FULL-TERM UNCOMPLICATED DELIVERY Status: Acute Current Visit: Yes - Problem List Review Problem List Initiated/Reviewed/Updated: Yes - My Orders Last 24 Hours: My Active Orders 01/28/20 07:17 Monitoring [RC] INTERMITTENT Vaginal Exam [RC] ASDIRECTED Resuscitation Status Routine 01/28/20 07:18 Heart Tones [RC] ASDIRECTED 01/28/20 07:45 PATIENT RETYPE [BBK] Routine 01/28/20 08:35 GROUP B STREP BY PCR [MOLEC] Stat 01/28/20 15:16 Activity as Tolerated [RC] PER UNIT ROUTINE Vital Signs [RC] 03,09,15,21 Acetaminophen [Tylenol] 650 mg PO Q4H PRN Benzocaine/Menthol [Dermoplast Pain Relief [place]] See Dose Instructions TOP ASDIRECTED PRN Docusate Sodium [Colace] 100 mg PO BID PRN Ibuprofen [Motrin] 600 mg PO Q6H PRN witch [place] [Tucks] 1 pad TOP ASDIRECTED PRN Assess Lochia [WOMSER] Per Unit Routine Assess Uterine Involution [WOMSER] Per Unit Routine Breast Pump [WOMSER] Per Unit Routine Heat Therapy [OM.PC] PRN Ice Therapy [OM.PC] Per Unit Routine Perineal Care [OM.PC] Per Unit Routine Peripheral IV Discontinue [OM.PC] Routine Sitz Bath [OM.PC] Per Unit Routine 01/28/20 Dinner Regular Diet [DIET] 01/29/20 06:38 Ready for Discharge [RC] PER UNIT ROUTINE 01/29/20 15:16 Heat Therapy [TAVARES] PRN - Assessment Assessment:: PPD#1 - Plan Plan:: * Routine cares * bottle feeding * Discharge back to senior living today. 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
--- NOTE | 2020-01-29 06:39 | PCM.DCSUM1 ---
Discharge Summary - Discharge Data Discharge Date: 01/29/20 Discharge Disposition: Home, Self-Care 01 Condition: Good - Referral to Home Health Primary Care Physician: Yuki Tesfaye MD - Discharge Diagnosis/Problem(s) (1) 39 weeks gestation of SNOMED Code(s): 17168649 ICD Code: Z3A.39 - 39 WEEKS GESTATION OF Status: Acute Current Visit: Yes (2) Imprisonment and other incarceration SNOMED Code(s): 80589931 ICD Code: Z65.1 - IMPRISONMENT AND OTHER INCARCERATION Status: Acute Current Visit: Yes (3) History of drug abuse SNOMED Code(s): 236486780 ICD Code: F19.11 - OTHER PSYCHOACTIVE SUBSTANCE ABUSE, IN REMISSION Status : Acute Current Visit: Yes (4) Vaginal delivery SNOMED Code(s): 377846222 ICD Code: O80 - ENCOUNTER FOR FULL-TERM UNCOMPLICATED DELIVERY Status: Acute Current Visit: Yes - Patient Summary/Data Complications: None Consults: None Recommended Follow-up Testing/Procedures: Follow up in 3 weeks for check Hospital Course: 24 y/o at 39 3/7 wks who presented for IOL. This was done with pitocin and AROM. Progressed well to complete dilation and underwent an uncomplicated . See delivery note. did well and was discharged home on PPD#1 - Patient Instructions Diet: Regular Diet as Tolerated Activity: As Tolerated Activity, Other: Pelvic rest for 6 weeks Driving: May Drive Today Showering/Bathing: May Shower Showering/Bathing, Other: May Bathe Notify Provider of: Fever, Increased Pain, Swelling and Redness, Nausea and/or Vomiting - Discharge Plan *PRESCRIPTION DRUG MONITORING PROGRAM REVIEWED*: No *COPY OF PRESCRIPTION DRUG MONITORING REPORT IN PATIENT VAZQUEZ: No Home Medications: Home Meds Acetaminophen [Tylenol] 650 mg PO Q4H PRN tablet 01/29/20 [Rx] Ibuprofen [Motrin] 600 mg PO Q6H PRN tablet 01/29/20 [Rx] Referrals: Yuki Tesfaye MD [Primary Care Provider] - (3 weeks for check) - Discharge Summary/Plan Comment DC Time >30 min.: No - Patient Data Vitals - Most Recent: Last Vital Signs Temp 36.9 C 01/29/20 03:24 Pulse 56 L 01/29/20 03:24 Resp 16 01/29/20 03:24 BP 131/84 01/29/20 03:24 Pulse Ox 98 01/29/20 03:24 Weight - Most Recent: 138.527 kg I&O - Last 24 hours: Intake & Output 01/28/20 01/28/20 01/29/20 14:59 22:59 06:59 Intake Total 0 3120 Output Total 300 Balance 0 2820 Lab Results - Last 24 hrs: Laboratory Results - last 24 hr 01/28/20 01/28/20 01/28/20 Range/Units 07:45 07:45 07:45 WBC 9.75 (3.98-10.04) K/mm3 RBC 3.79 L (3.98-5.22) M/mm3 Hgb 11.5 (11.2-15.7) gm/dl Hct 35.2 (34.1-44.9) % MCV 92.9 (79.4-94.8) fl MCH 30.3 (25.6-32.2) pg MCHC 32.7 (32.2-35.5) g/dl RDW Std Deviation 40.8 (36.4-46.3) fL Plt Count 291 (182-369) K/mm3 MPV 10.7 (9.4-12.3) fl Urine Opiates Screen (JETDKS=459) Ur Buprenorphine Scrn (CUTOFF=10) Ur Oxycodone Screen (JHU1HJ=593) Urine Methadone Screen (ZPQDRR=908) Ur Propoxyphene Screen (VXRPWY=694) Ur Barbiturates Screen (NCWFRH=963) Ur Tricyclics Screen (PWGQAD=124) Ur Phencyclidine Scrn (CUTOFF=25) Ur Amphetamine Screen (FWSTSG=708) U Methamphetamines Scrn (PYXAMJ=936) U Benzodiazepines Scrn (QWCNFH=856) U Cocaine Metab Screen (UDWOAG=141) U Marijuana (THC) Screen (CUTOFF=50) RPR Non-reactive (NONREACTIVE) MRSA (PCR) Blood Type O POSITIVE Gel Antibody Screen Negative 01/28/20 01/28/20 Range/Units 09:40 10:40 WBC (3.98-10.04) K/mm3 RBC (3.98-5.22) M/mm3 Hgb (11.2-15.7) gm/dl Hct (34.1-44.9) % MCV (79.4-94.8) fl MCH (25.6-32.2) pg MCHC (32.2-35.5) g/dl RDW Std Deviation (36.4-46.3) fL Plt Count (182-369) K/mm3 MPV (9.4-12.3) fl Urine Opiates Screen Negative (XYXLTL=019) Ur Buprenorphine Scrn Negative (CUTOFF=10) Ur Oxycodone Screen Negative (DOQ8CN=671) Urine Methadone Screen Negative (VOQIQW=430) Ur Propoxyphene Screen Negative (SPEMXW=268) Ur Barbiturates Screen Negative (VLSTOS=499) Ur Tricyclics Screen Negative (RIHNAN=179) Ur Phencyclidine Scrn Negative (CUTOFF=25) Ur Amphetamine Screen Negative (MWNDQN=860) U Methamphetamines Scrn Negative (BYGSES=920) U Benzodiazepines Scrn Negative (TELEEV=469) U Cocaine Metab Screen Negative (AOKHZF=130) U Marijuana (THC) Screen Negative (CUTOFF=50) RPR (NONREACTIVE) MRSA (PCR) Positive H Blood Type Gel Antibody Screen Med Orders - Current: Current Medications Acetaminophen (Tylenol) 650 mg PO Q4H PRN PRN Reason: mild pain or fever Benzocaine/Menthol (Dermoplast Pain Relief [place]) 0 gm TOP ASDIRECTED PRN PRN Reason: Perineal Comfort Measure Last Admin: 01/28/20 16:54 Dose: 1 can Docusate Sodium (Colace) 100 mg PO BID PRN PRN Reason: Constipation Ibuprofen (Motrin) 600 mg PO Q6H PRN PRN Reason: Mild pain or fever Last Admin: 01/29/20 03:42 Dose: 600 mg Witch Kinza (Tucks) 1 pad TOP ASDIRECTED PRN PRN Reason: Perineal Comfort Measure Last Admin: 01/28/20 16:54 Dose: 1 tub Discontinued Medications Diphenhydramine HCl (Benadryl) 25 mg IVPUSH Q6H PRN PRN Reason: Itching Ephedrine Sulfate (Ephedrine Sulfate) 5 mg IVPUSH ASDIRECTED PRN PRN Reason: HYPOTENTSION Fentanyl (Sublimaze) 100 mcg EPIDUR Q3H PRN PRN Reason: Pain Last Admin: 01/28/20 10:02 Dose: 100 mcg Fentanyl/Bupivacaine HCl (Fentanyl/Bupivacaine/Ns 2 Mcg-0.125% 100 Ml) 100 ml EPIDUR CONTINUOUS PRN PRN Reason: Pain Last Admin: 01/28/20 10:02 Dose: 100 ml Lactated Ringer's (Ringers, Lactated) 1,000 mls @ 40 mls/hr IV ASDIRECTED CHELA Last Admin: 01/28/20 09:58 Dose: 40 mls/hr Oxytocin/Lactated Ringer's (Pitocin In Lr 10 Units/1,000 Ml) 10 unit in 1,000 mls @ 12 mls/hr IV TITRATE CHELA; Protocol Last Titration: 01/28/20 14:56 Dose: 999 munits/min, 5,994 mls/hr Oxytocin/Lactated Ringer's (Pitocin In Lr 10 Units/1,000 Ml) 10 unit in 1,000 mls @ 500 mls/hr IV .CONTINUOUS CHELA Nalbuphine HCl (Nubain) 10 mg IVPUSH Q2H PRN PRN Reason: Pain Ondansetron HCl (Zofran) 4 mg IVPUSH Q4H PRN PRN Reason: Nausea/Vomiting Sodium Chloride (Saline Flush) 10 ml FLUSH ASDIRECTED PRN PRN Reason: Keep Vein Open
--- NOTE | 2020-01-29 08:48 | PCM48HPAN ---
Post Anesthesia Note - EVALUATION WITHIN 48HRS OF ANESTHETIC Vital Signs in Normal Range: Yes Patient Participated in Evaluation: Yes Respiratory Function Stable: Yes Airway Patent: Yes Cardiovascular Function Stable: Yes Hydration Status Stable: Yes Pain Control Satisfactory: Yes Nausea and Vomiting Control Satisfactory: Yes Mental Status Recovered: Yes Vital Signs: Last Vital Signs Temp 98.4 F 01/29/20 03:24 Pulse 56 L 01/29/20 03:24 Resp 16 01/29/20 03:24 BP 131/84 01/29/20 03:24 Pulse Ox 98 01/29/20 03:24 - COMMENTS/OBSERVATIONS Free Text/Narrative:: Patient is on her day 1. Stated understanding about possible backaches following epidural anesthesia. Explanation given about importance of avoiding back straining. Denies any backache, headache or lightheadedness at this time. Comfortable now. Ambulating, no difficulty urinating.
[2020-01-29 12:25] VITALS: PULSE 71
[2020-01-29 18:46] VITALS: BP 136/81
== END 2020-01-29 17:00 | disposition home or self-care (01) | DRG 807 ==
LOC: JD.OBCHECK 06:49 → JD.OB 06:50 → JD.OBCHECK 06:51 → EEVIPCON 06:52 → JD.OB 06:52 → JD.MS 07:20 → JD.OB 07:26 → OBSVTOIN 14:55 → JD.OB 15:29
PROVIDERS: ADMIT Obstetrics & Gynecology; ATTEND Obstetrics & Gynecology
PROC: 10E0XZZ Delivery of Products of Conception, External Approach (ICD-10-PCS; principal; 2020-01-28)
PROC: 10907ZC Drainage of Amniotic Fluid, Therapeutic from Products of Conception, Via Natural or Artificial Opening (ICD-10-PCS; 2020-01-28)
PROC: 3E033VJ Introduction of Other Hormone into Peripheral Vein, Percutaneous Approach (ICD-10-PCS; 2020-01-28)
PROC: 3E0R3BZ Introduction of Anesthetic Agent into Spinal Canal, Percutaneous Approach (ICD-10-PCS; 2020-01-28)
PROC: 00HU33Z Insertion of Infusion Device into Spinal Canal, Percutaneous Approach (ICD-10-PCS; 2020-01-28)
DX: O99.214 Obesity complicating childbirth (principal); Z37.0 Single live birth; E66.9 Obesity, unspecified; Z3A.39 39 weeks gestation of pregnancy
CPT/HCPCS: 36415; 51702; 59025; 59409; 80306; 85027; 86592; 86850; 86900; 86901; 87641; A9270-GY; J2590; J3010; J3490; J7120